=== PATIENT | female | born 1965 | race Caucasian/White ===

== ENCOUNTER 2022-05-14 10:00 | Outpatient (RCR) | payer BC, SELFPAY | END 2023-01-06 16:46 | disposition home or self-care (01) | PROVIDERS: PCP Internal Medicine; Visit Provider Internal Medicine | DX: M77.11 Lateral epicondylitis, right elbow (principal); M77.12 Lateral epicondylitis, left elbow; Z51.89 Encounter for other specified aftercare | CPT/HCPCS: 97033; 97035; 97140; 97166 ==

== ENCOUNTER 2022-06-03 16:31 | Outpatient (CLI) | payer BC, SELFPAY ==
--- NOTE | 2022-06-03 16:30 | MR_ITS ---
[address] [address] Phone:?[phone] Fax:?[phone] Referring Physician Information: Nabil Hung M.D. [address] [facility] [address] Phone:?[phone] Fax:?[phone] Patient:Manjinder Meza D.O.B:?1965 Sex:?Female Phone:?[phone] [facility] MRN:?[id number] Exam Date:?06/03/2022 ? EXAM: MRI of the RIGHT SHOULDER, without contrast CLINICAL INFORMATION: Female, 56 years old, with shoulder pain INDICATION: Shoulder pain, evaluate rotator cuff PRIOR SURGERY: None reported. PLAIN FILMS: None available. COMPARISONS: Shoulder MRI 03/19/2021 TECHNICAL INFORMATION: Using a 1.5T MR scanner and a localizing surface coil: Coronals: PD, T2, STIR Sagittals: PD, T2 Axials: PD, T2 SEDATION: None CONTRAST: None FINDINGS: Bones: Proximal humerus: No fracture or marrow edema/pathology. Cystic change in the greater tuberosity is unchanged from prior. No humeral Hill-Sachs or reverse Hill-Sachs lesion/impaction or contusion. Glenoid: No fracture or marrow edema/pathology. No osseous Bankart lesion. Rotator cuff and muscles/tendons: Supraspinatus: Mild supraspinatus tendinosis with interstitial tearing of the anterior distal tendon fibers at the insertional footprint measuring 12 mm in AP dimension with focally high-grade component involving greater than 80% tendon thickness. Superimposed articular sided fraying anteriorly. Infraspinatus: Mild infraspinatus tendinosis without rotator cuff tear. Teres minor: No tendinopathy, tear or atrophy. Subscapularis: Mild subscapularis tendinosis with longitudinally oriented splitting of the superior distal tendon.?Deltoid: No strain or atrophy. Coracoacromial arch: Acromion morphology: The acromion has type II morphology. No discrete subacromial osseous spur or os acromiale. Acromiohumeral space: The acromiohumeral space measures 5 mm. Coracohumeral space: The coracohumeral space is within normal limits. Acromioclavicular joint: Joint: Mild AC joint arthrosis with small subchondral cystic change. Ligaments: Coracoclavicular ligaments are intact. Bursae: Subacromial-subdeltoid: Trace subacromial bursitis Subcoracoid: No convincing subcoracoid bursal thickening/bursitis. Biceps tendon: The long head of the biceps tendon is present within the bicipital groove. Moderate intra-articular long head biceps tendinosis. Glenohumeral joint: Effusion/cyst: No significant glenohumeral joint effusion. Articular cartilage: Humeral head: No osteochondral abnormalities. Glenoid: No osteochondral abnormalities. Loose bodies: No discrete intra-articular body within the joint. Labrum:?Degeneration and fraying/tearing of the posterosuperior labrum. No paralabral ganglion cyst is identified. Inferior glenohumeral ligament/axillary pouch:?Intact. The axillary pouch is normal in thickness and signal. No evidence of adhesive capsulitis or capsular injury. IMPRESSION: 1. Mild supraspinatus tendinosis with interstitial tearing at the anterior distal insertional footprint similar in appearance to prior exam with focal high-grade component. Superimposed articular sided fraying anteriorly. No full- thickness retracted tendon tearing. 2. Mild subscapularis tendinosis with low-grade longitudinally oriented splitting of the superior distal tendon. 3. Mild infraspinatus tendinosis without tear. 4. Degeneration and fraying/tearing of the posterosuperior labrum. 5. Moderate intra-articular long head biceps tendinosis. 6. Mild narrowing of the subacromial space with trace subacromial bursitis. 7. No osteochondral defect. KME Electronically signed on 06/04/2022 12:41:00 PM by Isadora Henning M.D.
--- OUTSIDE RECORDS SUMMARY | 2022-06-03 16:32 | XMS_ITS | Clinical Summary ---
:1965 Author Organization [facility] Address [place] [address] Care Team Providers Name Role Phone Lisha Johnson BRICK POINTER Primary Care Provider Allergies Active Allergy Reactions Severity Noted Date Comments Bacitracin Itching 04/15/2022 Medications Medication Sig Dispensed Refills Start Date End Date Status atorvastatin (LIPITOR) Take 10 mg by 0 08/16/2021 Active 10 mg tablet mouth at bedtime. estradiol 0.1 mg/24 hr 0 03/17/2022 Active SEMIWEEKLY patch progesterone micronized 0 03/15/2022 Active (PROMETRIUM) 100 mg capsule Active Problems Problem Noted Date Colon polyp 12/09/2014 Overview: Colonoscopy 12/2014 polyps,repeat in 5 ye ars Colonoscopy 04/2020 normal, repeat in 5 years Encounters Date Type Specialty Care Team Description 04/15/2022 Office Visit Justin Mcclure, DPRena Con sult (Right foot pain) 04/15/2022 Travel from Last 3 Months Social History Tobacco Use Types Packs/Day Years Used Date Never Smoker Smokeless Tobacco: Never Used Tobacco Cessation: Counseling Given: Yes Alcohol Use Standard Drinks/Week Comments Not Asked 0 (1 standard drink = 0.6 oz pure alcoho l) Sex Assigned at Date Recorded Not on file Obstetrics History Last Filed Vital Signs Vital Sign Reading Time Taken Comments Blood Pressure 104/70 10/15/2014 2:17 PM CDT Pulse 75 04/15/2022 2:08 PM CDT Temperature 36.7 ??C (98 ??F) 10/15/2014 2:17 PM CDT Respiratory Rate - - Oxygen Saturation 98% 04/15/2022 2:08 PM CDT Inhaled Oxygen Concentration - - Weight 70.8 kg (156 lb) 04/15/2022 2:08 PM CDT Height 165.1 cm (5' 5) 10/15/2014 2:17 PM CDT Body Mass Index 25.96 10/15/2014 2:17 PM CDT Plan of Treatment Health Maintenance Due Date Last Done Comments Tdap 1977 Depression screening for age 12+ 1978 HIV for age 15-65 1981 BMI (ht and wt on same day) for 1984 age 18+ Hepatitis C screening for age 0107/17/1984 18-79 Tetanus booster 1986 Lipids for age 45-75 2011 Mammogram for age 45-75 2011 Zoster (shingles) series for age 0107/17/2016 50+ (1 of 2) COVID-19 vaccine series (2 - 08/21/2021 07/31/2021 Pfizer series) Influenza for age 50-64 03/04/2022 Pap test for age 21-65 09/03/2024 09/03/2021, 09/03/2021, 05/24/2017, Additional history exists Colonoscopy through age 75 04/07/2025 04/07/2020, , 04/07/2020, Additional history exists Results Not on filefrom Last 3 Months Insurance Payer Benefit Plan / Subscriber ID Effective Dates Phone Addre ss Type Group BLUE [employer]OSS [place] [id number] 2020-Present [address] [address] [place] [address] Care Teams Pants Closer Relationship Specialty Start Date End Date Lisha Johnson, BRICK POINTER PCP - General Nurse Practitioner 10/15/14 [id number] [place], [place] [id number]
== END 2022-06-03 16:32 | disposition home or self-care (01) ==
LOC: MRI 16:31
PROVIDERS: PCP Internal Medicine; Visit Provider Orthopaedic Surgery Sports Medicine
DX: M25.511 Pain in right shoulder (principal); M75.101 Unspecified rotator cuff tear or rupture of right shoulder, not specified as traumatic; S43.401A Unspecified sprain of right shoulder joint, initial encounter; M75.51 Bursitis of right shoulder
CPT/HCPCS: 73221

== ENCOUNTER 2022-07-01 13:13 | Outpatient (CLI) | payer BC, SELFPAY ==
--- NOTE | 2022-07-01 13:20 | CRLHL7_ITS ---
For Patients: As a result of the Century Cures Act, medical imaging exams and procedure reports are released immediately into your electronic medical record. You may view this report before your referring provider. If you have questions, please contact your health care provider. BILATERAL SCREENING MAMMOGRAM WITH COMPUTER-AIDED DETECTION AND TOMOSYNTHESIS TECHNIQUE: CC and MLO views were obtained. These mammographic images have been obtained using full-field digital technique. These mammographic images were interpreted with the benefit of computer-aided detection. Breast Tomosynthesis was used in this interpretation. COMPARISON FILM: 04/28/21, 01/30/20, 12/18/18. FINDINGS: There are scattered areas of fibroglandular density IMPRESSION: There is no radiographic evidence for malignancy. ASSESSMENT: BI-RADS Category 1: Negative RECOMMENDATION: Routine screening mammogram in 1 year. A lay language report of this examination will be provided to the patient. Pedro Sandoval M.D. Diagnostic Radiologist [email or web address] SIL/Dictated by: Pedro Sandoval MD @ 07/02/2022 11:42:00 AM (Electronically Signed)
== END 2022-07-01 13:14 | disposition home or self-care (01) ==
LOC: MAMMO 13:14
PROVIDERS: PCP Internal Medicine; Visit Provider Internal Medicine
DX: Z12.31 Encounter for screening mammogram for malignant neoplasm of breast (principal)
CPT/HCPCS: 77063; 77067

== ENCOUNTER 2022-07-19 06:19 | Day surgery (SDC) | payer BC, SELFPAY ==
[2022-07-19] VITALS (17 sets, daily range): BP systolic 94–132; BP diastolic 57–87; PULSE 52–74; RESP 16; TEMP 36.1–36.4; O2SAT 91–99; BMI 25.6
[2022-07-19] MEDS: fentaNYL 100 MCG/2 ML inj IVP (06:19)
[2022-07-19] MEDS: MIDAZOLAM HCL 1 MG/ML inj IVP (06:19)
[2022-07-19] MEDS: SODIUM CHLORIDE 0.9 % (FLUSH) 10 ML SYRINGE IVF (06:30)
[2022-07-19] MEDS: LACTATED RINGERS 1000 ML 1,000 ML 100 ML IV (06:30)
--- NOTE | 2022-07-19 07:16 | SUR.PREOP ---
TIME?OUT:?0720 PT/RN/MDA?VERIFICATION?OF?SURGICAL?SITE,?PROCEDURE,?AND?CONSENT OBTAINED?PRIOR?TO?INVASIVE?PROCEDURE.
[2022-07-19] MEDS: CEFAZOLIN 2 GM in 0.9 % SODIUM CHLORIDE Mini-bag 100 ML IVPB (08:48)
[2022-07-19] MEDS: EPINEPHrine 1 MG in SODIUM CHLORIDE IRRIG SOLUTION 3,000 ML 9003 MG IRRIGATION ×3 (08:59→09:40)
--- NOTE | 2022-07-19 09:50 | PM.ORPRC ---
Procedure Note Date of procedure: 07/19/22 Procedure: PREOPERATIVE DIAGNOSES: 1. Right shoulder rotator cuff [id number] partial-thickness supraspinatus 2. Right shoulder subacromial impingement syndrome. POSTOPERATIVE DIAGNOSES: 1. Right shoulder rotator cuff [id number] partial-thickness supraspinatus; upper border subscapularis high-grade partial-thickness 2. Right shoulder anterior and superior labral tearing 3. 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 Right shoulder subacromial impingement syndrome. NAME OF OPERATION: 1. Right shoulder arthroscopic rotator cuff repair (upper border subscap and anterior portion supraspinatus). 2. Right shoulder arthroscopic extensive glenohumeral debridement 3. Right shoulder arthroscopic bursectomy, subacromial decompression/partial acromioplasty. SURGEON: Nabil Hung MD RIB CHOPPER: Cleve Hayes PA-C. Of note, a skilled judicial administrative assistant was critical for this case to aide in patient positioning, suture manipulation, arm positioning, instrument positioning, and closure. ANESTHESIA: General plus preoperative supraclavicular block. EBL: Less than 25 mL IMPLANTS: Arthrex 4.75 mm BioComposite SwiveLock suture anchor (x1); 5.5 mm BioComposite SwiveLock suture anchor (x1) COMPLICATIONS: None evident INDICATIONS: The patient is a pleasant, 57-year-old female who has experienced right shoulder pain that has been increasing in recent time. Physical exam and imaging were consistent with a rotator cuff tear. Given their findings, as well as the weakness and pain, and inadequate response to nonoperative management, recommendation was made for surgery. FINDINGS: Exam under anesthesia revealed stable shoulder with excellent range of motion. The diagnostic arthroscopy revealed grade 4 chondromalacia humeral head an 8 mm region of the anterior central portion with loose chondral flaps around the perimeter. The Subscapularis tendon was torn from its upper border with mild-moderate retraction. The long head of the biceps tendon was intact with some partial thickness tearing of the superior and anterior labrum. The superior rotator cuff tendon was found to be torn in high-grade partial-thickness manner to the anterior portion of the supraspinatus consistent with what the MRI reveals. No loose bodies were identified within the pouch or subscapularis recess. PROCEDURE: Following a thorough discussion of risks, benefits, and alternatives, consent was obtained and the right shoulder was marked. The patient was brought to the operating room and placed supine on the operating table. Induction of anesthesia was completed after preoperative supraclavicular block was administered in preop holding. Appropriate time out was performed identifying proper patient, site, and procedure. 2 g IV Ancef was administered within 1 hour of incision preoperatively. The right upper extremity was prepped and draped in the appropriate sterile fashion using ChloraPrep prep. This was after the patient was positioned in the beach chair with their head in neutral alignment and all bony prominences well padded. The shoulder was insufflated with 20mL of normal saline via an 18g spinal needle from a posterior approach. An 11 blade skin incision allowed a blunt trochar to be inserted and diagnostic arthroscopy to be performed with the findings as noted above. An anterior portal was established with an outside in technique. This allowed the probe to be inserted and confirm the diagnostic arthroscopic findings. The shaver was then inserted and allowed debridement of the anterior and superior labrum as well as the loose chondral flaps on the humeral tissue and the humeral head bone tissue on the lesser tuberosity with the bur. The long head of biceps was probed and found be intact and stable without partial-thickness tearing or subluxation of bicipital groove. Following this, the upper border subscapularis was repaired after debriding the lesser tuberosity with the shaver and [place] cautery. Subscapularis was captured in horizontal mattress fashion with a fiber tape suture. The tails were brought to a single anchor in the lesser tuberosity with excellent reapproximation of the subscap tendon and good excursion/tension. Thereafter, the subacromial space was entered. Here, a complete bursectomy and partial acromioplasty/subacromial decompression was performed with a combination of radiofrequency ablator, the shaver, and a 5.5 mm bur. Further inspection of the supraspinatus and infraspinatus rotator cuff was performed. This identified the tear as noted above. The margins of the tear were debrided, and the greater tuberosity was debrided with a combination of the apollo cautery, shaver, and bur on reverse setting. [After gentle decortication, single FiberTape suture was passed in a horizontal mattress fashion with the scorpion needle. We entered back into the joint to confirm that the biceps tendon was free and not a part of suture passage. These tails were then brought to a single lateral anchor consistent with a speed fix repair. Prior to anchor farm truck driver removal, the eyelet sutures were tugged on for each anchor and found that the anchor had excellent stability within the bone. The shoulder was placed through range of motion and found to be stable. The rotator cuff was re-probed and found to be stable. Instruments were removed. Excess fluid was drained, closure performed with 4-0 Monocryl and Steri-Strips. Dressings were applied. Sling was applied. The patient was awoken from anesthesia and transferred to the PACU in stable condition. A skilled judicial administrative assistant was critical for this case to aid in patient positioning, limb positioning, skill to manipulate arthroscopic instruments and camera, suture management, patient safety, and closure. PLAN: 1. Elbow, forearm, wrist and digit range of motion as tolerated. 2. Encouraged ice. 3. Percocet for pain as needed. 4. Sling at all times except for ROM and showering. 5. Follow up with PA visit in 1-2 weeks for wound check. Initiate physical therapy following that visit for passive range of motion. Initiate active assisted range of motion at 3-3.5 weeks. May do pendulums now.
--- NOTE | 2022-07-19 10:06 | W.ANESCHARGE ---
Anesthesia Charges Start Date/Time Anesthesia Start Date: 07/19/22 Anesthesia Start Time: 08:37 Stop Date/Time Anesthesia Stop Date: 07/19/22 Anesthesia Stop Time: 10:06 Summary Emergency: No
[2022-07-19] MEDS: fentaNYL 100 MCG/2 ML inj 50 MCG IVP ×2 (10:10→10:21)
[2022-07-19] MEDS: OxyCODONE/APAP 5-325 TABLET 1 TAB PO (11:08)
--- NOTE | 2022-07-19 14:05 | P.NB_ITS ---
Nerve Block Nerve Block Time Seen by Provider: 07:23 Date Seen: 07/19/22 Type of block requested by surgeon for post-operative analgesia: supraclavicular Side: right Time out performed: Yes Verification of patient name: Yes Verification of date of : Yes Site marking: site marked Name of person performing procedure: Carlos Continuous monitoring Was continuous monitoring of O2 sat, B/P, gambling monitor, recorded every 15 minutes?: Yes Procedure Checklist: sterile prep, needles and gloves Ultrasound guided. Images saved: Yes Medications given in 5ml increments after negative aspiration: Ropivicaine %: 0.5 mL: 20 Needle gauge: 22 Decadron (mg): 10 Precedex (mcg): 25 Patient tolerated procedure well: Yes Block Charges Block Charge (with Pro Fee): Brachial Plexus Use of Ultrasound Machine for Block: Yes- US Guidance/pain block
--- NOTE | 2022-07-19 14:05 | W.ANESCHARGE ---
Anesthesia Charges Start Date/Time Anesthesia Start Date: 07/19/22 Anesthesia Start Time: 08:37 Stop Date/Time Anesthesia Stop Date: 07/19/22 Anesthesia Stop Time: 10:06 Summary Emergency: No
== END 2022-07-19 11:50 | disposition home or self-care (01) ==
PROVIDERS: PCP Internal Medicine; Visit Provider Orthopaedic Surgery Sports Medicine
PROC: (CPT 29805; principal; 2022-07-19 08:30)
DX: M75.101 Unspecified rotator cuff tear or rupture of right shoulder, not specified as traumatic (principal); M75.41 Impingement syndrome of right shoulder; S43.431A Superior glenoid labrum lesion of right shoulder, initial encounter; M94.211 Chondromalacia, right shoulder
CPT/HCPCS: 29827; 29826; 29823; 01630; 64415; 76942; A9270; C1713; J0171; J0330; J0690; J1100; J2250; J2370; J2405; J2704; J2795; J3010; J7120

== ENCOUNTER 2022-12-02 15:15 | Outpatient (RCR) | payer BC, SELFPAY | END 2023-04-01 23:59 | disposition home or self-care (01) | PROVIDERS: PCP Internal Medicine; Visit Provider Physician Assistant Surgical | DX: M25.511 Pain in right shoulder (principal); Z98.890 Other specified postprocedural states; Z51.89 Encounter for other specified aftercare | CPT/HCPCS: 97110; 97162 ==

== ENCOUNTER 2023-05-05 07:39 | Outpatient (CLI) | payer BC, SELFPAY | END 2023-05-05 07:40 | disposition home or self-care (01) | LOC: NFLDREF 05-09 05:10 | PROVIDERS: PCP Internal Medicine; Referring Provider Internal Medicine; Visit Provider Internal Medicine | DX: E78.5 Hyperlipidemia, unspecified (principal) | CPT/HCPCS: 80061 ==

== ENCOUNTER 2023-06-30 09:00 | Outpatient (RCR) | payer BC, SELFPAY ==
--- NOTE | 2023-06-16 17:14 | PT.OPEX ---
PT [place] Outpatient Eval PT [facility] Outpatient Eval Start: 06/16/23 16:54 Freq: Status: Active Protocol: Document 06/16/23 16:54 LOUISE (Rec: 06/16/23 17:08 LOUISE [id number]) E-signed By Maddie Gold DPT Physical Therapy Outpatient Evaluation Insurance Information Insurance Name Blue Cross/Blue Shield Medical Diagnosis R shoulder pain, stiffness hx RCR 07/19/22 Treating Diagnosis R shoulder pain, R shoulder stiffness, R shoulder weakness , limited tolerance for push/ pull/lifting Subjective Subjective Patient reports flare up of R anterior shoulder pain about 2 -3 months ago. Pain has continued since then but will fluctuate up/down some depending on use. She reports tenderness with pressure to her R anterior shoulder. She has been trying to do stretches and icing but pain/ sx continue. Pain range 0-4/ 10. She is using ibuprofen as needed. Icing as needed. She had RCR Jul 2022 so was concerned she did something to her RC. MD felt RC was ok but just some over use soreness and stiffness so referred to PT. 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 Pain range 0-4/10. Patient with hx of R RCR Jul 2022. She is tight, tender, reactive with palpation R anterior shoulder region. Reports this is the area of pain with activity. R shoulder AROM is WFL. Some tightness, stiffness with overhead reaching but functional. R shoulder/RC strength is WFL, mild pain with resisted shoulder flex, abd. R shoulder Speeds Test positive. Reviewed general stretching for R shoulder, use of pulleys, codmans for relaxation and pain relief. Patient shown bicep tendon stretching. She started back on some of her shoulder exercises - reviewed exercises and recommendations for current HEP and then ongoing HEP to prevent future flare ups. Patient expressed understanding. Treatment with MT, graston technique, cupping, and taping this session. Tolerated well. Patient to ice when she gets home. Patient would benefit from skilled PT for pain/sx management, return to pain free R shoulder ROM WFL, improved R shoulder strength, posture/body mechanics training, and establishment of HEP. Plan of Care Rehabilitation Potential Good Physical Therapy Goals 1. Decrease R shoulder pain to less than/equal to 3/10 with daily/work activities and with the progression of PT activities over the next 4-6 weeks. 2. Return to R shoulder AROM WFL and pain free over the next 6-8 weeks for return to daily/work activities without flare up of pain. 3. Patient will be educated on posture and body mechanics over the next 4-6 weeks for decreased stress to UBN/shoulder region, improved shoulder mechanics, and decreased shoulder pain. 4. Improve R shoulder strength over the next 6-8 weeks for return to PLF with daily/work activities without limitation or flare up of pain. 5. Patient will be I with HEP within 8 weeks for progression toward above goals, ongoing self management of pain/sx, ongoing self improvements in posture/shoulder strength/ mechanics, and for return to PLF with daily/work activities without flare up of pain. Coordination/Communication With Referral Source Treatment Plan/Direct Interventions Manual Therapy,Therapeutic Exercises,Ultrasound Frequency/Duration 1x/week Patient Will Be Discharged From Therapy Completion of LTG(s),Skills Plateau,Independent w/HEP, Independently Progressing Evaluation Billing Untimed Code Treatment Minutes 24 Complexity Moderate Certification Information Physician Comment/Change : Physician NPI Number #
== END 2023-09-30 11:22 | disposition home or self-care (01) ==
PROVIDERS: PCP Internal Medicine; Visit Provider Orthopaedic Surgery Sports Medicine
DX: M25.511 Pain in right shoulder (principal); M25.611 Stiffness of right shoulder, not elsewhere classified; Z98.890 Other specified postprocedural states; R29.898 Other symptoms and signs involving the musculoskeletal system; Z51.89 Encounter for other specified aftercare
CPT/HCPCS: 97110; 97140; 97162

== ENCOUNTER 2023-11-17 09:09 | Outpatient (CLI) | payer BC, SELFPAY ==
--- OUTSIDE RECORDS SUMMARY | 2023-11-17 09:12 | XMS_ITS | Clinical Summary ---
Author Name Unknown Organization [facility] Address [place], [place] [address] Care Team Providers Care Superintendent Nonselling Name Role Phone Lisha Johnson ETYMOLOGY TEACHER Primary Care Provider Unava ilable Allergies Active Allergy Reactions Criticality Noted Date Comments Bacitracin Itching 04/15/2022 Medications Medication Sig Dispensed Refills Start Date End Date Status atorvastatin (LIPITOR) 10 mg tablet Take 10 mg by mouth at bedtime. 08/16/2021 Active estradiol 0.1 mg/24 hr SEMIWEEKLY patch 03/17/2022 Active progesterone micronized (PROMETRIUM) 100 mg capsule 03/15/2022 Active Active Problems Problem Noted Date Diagnosed Date Colon polyp 12/09/2014 Overview: Colonoscopy 12/2014 polyps,repeat in 5 years Colonoscopy 04/2020 normal, repeat in 5 years Social History Tobacco Use Types Packs/Day Years Used Date Smoking Tobacco: Never Smokeless Tobacco: Never Tobacco Cessation:Counseling Given: Yes Alcohol Use Standard Drinks/Week Comments Not Asked 0 (1 standard drink = 0.6 oz pur e alcohol) Sex and Gender Information Value Date Recorded Sex Assigned at Not on file Gender Identity Not on file Sexual Orientation Not on file Obstetrics History Last Filed Vital Signs Vital Sign Reading Time Taken Comments Blood Pressure 104/70 10/15/2014 2:17 PM CDT Pulse 56 07/07/2023 11:59 AM YEAST CULTURE OPERATOR Temperature 36.8 ??C (98.3 ??F) 07/07/2023 11:[address] Respiratory Rate - - Oxygen Saturation 96% 09/09/2022 11:20 AM YEAST CULTURE OPERATOR Inhaled Oxygen Concentration - - Weight 69.1 kg (152 lb 6.4 oz) 07/07/2023 11:59 AM YEAST CULTURE OPERATOR Height 165.1 cm (5' 5) 10/15/2014 2:17 PM CDT Body Mass Index 25.36 10/15/2014 2:17 PM CDT Plan of Treatment Health Maintenance Due Date Last Done Comments Tdap 1977 Depression screening for age 12+ 1978 HIV for age 15-65 1981 BMI (ht and wt on same day) for age 18+ 1984 Hepatitis C screening for age 18-79 1984 Tetanus booster 1986 Lipids for age 45-75 2011 Mammogram for age 45-75 2011 Zoster (shingles) series for age 50+ (1 of 2) 2016 COVID-19 vaccine series (2022- season) 2023 07/31/2021 Influenza for age 50-64 03/04/2024 Pap test for age 21-65 09/03/2024 , 09/03/2021, 05/24/2017, Additional history exists Colonoscopy through age 75 04/07/202504/07, 04/07/2020, 04/07/2020, Additional history exists Pneumococcal series for age 6-64 Aged Out No longer eligible based on patient's age to complete this topic Procedures Procedure Name Priority Date/Time Associated Diagnosis Comments HPV THIN PREP Routine 09/03/2021 1:20 PM YEAST CULTURE OPERATOR COLONOSCOPY SCREENING Routine 04/07/2020 12:00 PM CDT History of colon polyps from Last 3 Months or Most Recently Relevant to Health Maintenance Results * HPV HIGH RISK (09/03/2021 1:20 PM YEAST CULTURE OPERATOR) TYPE 16 Negative Negative 09/08/2021 11:52 AM YEAST CULTURE OPERATOR [facility] TYPE 18 Negative Negative 09/08/2021 11:52 AM YEAST CULTURE OPERATOR [facility] OTHER HIGH RISK TYPES Negative Negative 09/08/2021 11:52 AM YEAST CULTURE OPERATOR [facility] Other (Cervical/Vagina l) 09/03/2021 1:20 PM YEAST CULTURE OPERATOR 09/07/2021 9:42 AM YEAST CULTURE OPERATOR Narrative [facility] - 09/08/2021 11:52 AM YEAST CULTURE OPERATOR HPV types 16, 18, 31, 33, 35, 39, 45, 51, 52, 56, 58, 59, 66 and 68 DNA were undetectable or below the pre-set threshold. Methodology: Johanna Rola 4800 HPV Test Yari Alex MD MICROBIOLOGY [facility] [address] [place] [address], * COLONOSCOPY SCREENING (04/07/2020 12:00 PM CDT) Conrad Umaña MD GI PROCEDURE ORD from Last 3 Months or Most Recently Relevant to Health Maintenance Care Teams Superintendent Nonselling Relationship Specialty Start Date End Date Lisha Johnson, JANICE PCP - General Nurse Practitioner 10/15/14
--- NOTE | 2023-11-17 09:45 | MM_ITS ---
Patient: LORENZA LIVINGSTON Facility:?[facility] Patient ID:?[id number] Site Patient ID:?[id number] Site :?[id number] Study:?XRay-Breast Bilateral 3D W/CAD-11/17/2023 9:51:47 AM Ordering Physician:Yari Tobias Final Report: BILATERAL SCREENING MAMMOGRAM WITH COMPUTER-AIDED DETECTION AND TOMOSYNTHESIS TECHNIQUE: CC and MLO views were obtained. These mammographic images have been obtained using full-field digital technique. These mammographic images were interpreted with the benefit of computer-aided detection. Breast Tomosynthesis was used in this interpretation. COMPARISON FILM: 07/01/22, 04/28/21, 01/30/20. FINDINGS: The breasts are heterogeneously dense, which may obscure small masses. IMPRESSION: There is no radiographic evidence for malignancy. ASSESSMENT: BI-RADS Category 2: Benign RECOMMENDATION: Routine screening mammogram in 1 year. A lay language report of this examination will be provided to the patient. Pedro Sandoval M.D. Diagnostic Radiologist [email or web address] DSM/sp R& Transcribed: 2:05 p.m. SP/Dictated by: Pedro Sandoval MD @ 11/17/2023 10:17:00 AM Signed by:Brandi Sandoval MD @11/17/2023 3:10:51 PM (Electronic Signature)
== END 2023-11-17 09:10 | disposition home or self-care (01) ==
LOC: MAMMO 09:10
PROVIDERS: PCP Internal Medicine; Visit Provider Internal Medicine
DX: Z12.31 Encounter for screening mammogram for malignant neoplasm of breast (principal); R92.2 Inconclusive mammogram
CPT/HCPCS: 77063; 77067

== ENCOUNTER 2024-04-16 13:40 | Outpatient (CLI) | payer BC, SELFPAY ==
--- OUTSIDE RECORDS SUMMARY | 2024-04-16 16:13 | XMS_ITS | Clinical Summary ---
Author Organization [employer] [facility] Address [place], [place] [address] Care Team Providers Care Alcoholic Counselor Name Role Phone Lisha Johnson NP Primary Care Provider Unava ilable Allergies Active [...] Noted Date Diagnosed Date Colon polyp 12/09/2014 Overview (04/07/2020): Colonoscopy 12/2014 polyps,repeat in 5 years Colonoscopy [...] PM CDT Pulse 56 07/07/2023 11:59 AM MANAGER FASHION Temperature 36.8 ??C (98.3 ??F) 07/07/2023 11:[address] Respiratory Rate - - Oxygen Saturation 96% 09/09/2022 11:20 AM MANAGER FASHION Inhaled Oxygen Concentration - - Weight 69.1 kg (152 lb 6.4 oz) 07/07/2023 11:59 AM MANAGER FASHION Height 165.1 cm (5' 5) 10/15/2014 2:17 [...] (1 of 2) 2016 COVID-19 vaccine series (2023- season) 2024 07/31/2021 Influenza for age 50-64 03/04/2024 Pap test for age 21-65 09/03/2024 , 09/03/2021, 05/24/2017, Additional history exists Colonoscopy through age 75 04/07/202504/07, 04/07/2020, 04/07/2020, Additional history exists Pneumococcal series for age 6-64 Aged Out No longer eligible based on patient's age to complete this topic Procedures Procedure Name Priority Date/Time Associated Diagnosis Comments HPV HIGH RISK Routine 09/03/2021 1:20 PM MANAGER FASHION COLONOSCOPY SCREENING Routine 04/07/2020 12:00 PM CDT History of colon polyps from Last 3 Months or Most Recently Relevant to Health Maintenance Results * HPV HIGH RISK (09/03/2021 1:20 PM MANAGER FASHION) TYPE 16 Negative Negative 09/08/2021 11:52 AM MANAGER FASHION [facility] [employer] [facility] TYPE 18 Negative Negative 09/08/2021 11:52 AM MANAGER FASHION [facility] [employer] OTHER HIGH RISK TYPES Negative Negative 09/08/2021 11:52 AM MANAGER FASHION [facility] Other (Cervical/Vagina l) 09/03/2021 1:20 PM MANAGER FASHION 09/07/2021 9:42 AM MANAGER FASHION Narrative [facility] LABOR[facility]-CENTRAL LABORATORY - 09/08/2021 11:52 AM MANAGER FASHION HPV types 16, 18, 31, 33, 35, 39, 45, 51, 52, 56, 58, 59, 66 and 68 DNA were undetectable or below the pre-set threshold. Methodology: Johanna Rola 4800 HPV Test Yari Alex MD MICROBIOLOGY [facility]-C[facility]AL LABORATORY [address] [place] [address], * COLONOSCOPY SCREENING (04/07/2020 12:00 PM CDT) Conrad Umaña MD GI PROCEDURE ORD from Last 3 Months or Most Recently Relevant to Health Maintenance Care Teams Alcoholic Counselor Relationship Specialty Start Date End Date Lisha Johnson, TRANSPORTATION PLANNING ENGINEER PCP - General Nurse Practitioner 10/15/14
== END 2024-04-16 13:41 | disposition home or self-care (01) ==
LOC: NFLDREF 16:11
PROVIDERS: PCP Internal Medicine; Referring Provider Internal Medicine; Visit Provider Family Medicine
DX: J01.90 Acute sinusitis, unspecified (principal)
CPT/HCPCS: 80048; 86140

== ENCOUNTER 2024-05-16 07:57 | Outpatient (CLI) | payer BC, SELFPAY ==
--- OUTSIDE RECORDS SUMMARY | 2024-05-19 18:07 | XMS_ITS | Clinical Summary ---
Author Organization [facility] [facility] Address [place], [place] [address] Care Team Providers Care Axminster Rug Setter Name Role Phone Lisha Johnson NP Primary [...] PM CDT Pulse 56 07/07/2023 11:59 AM FIRE MANAGER Temperature 36.8 ??C (98.3 ??F) 07/07/2023 11:[address] Respiratory Rate - - Oxygen Saturation 96% 09/09/2022 11:20 AM FIRE MANAGER Inhaled Oxygen Concentration - - Weight 69.1 kg (152 lb 6.4 oz) 07/07/2023 11:59 AM FIRE MANAGER Height 165.1 cm (5' 5) 10/15/2014 2:17 [...] HPV HIGH RISK Routine 09/03/2021 1:20 PM FIRE MANAGER COLONOSCOPY SCREENING Routine 04/07/2020 12:00 PM CDT History of colon polyps from Last 3 Months or Most Recently Relevant to Health Maintenance Results * HPV HIGH RISK (09/03/2021 1:20 PM FIRE MANAGER) TYPE 16 Negative Negative 09/08/2021 11:52 AM FIRE MANAGER [facility] [employer] [facility] TYPE 18 Negative Negative 09/08/2021 11:52 AM FIRE MANAGER [facility] [employer] TRAL LABORATORY OTHER HIGH RISK TYPES Negative Negative 09/08/2021 11:52 AM FIRE MANAGER [facility] TRAL LABORATORY Other (Cervical/Vagina l) 09/03/2021 1:20 PM FIRE MANAGER 09/07/2021 9:42 AM FIRE MANAGER Narrative [facility] LABORATORY-CENTRAL LABORATORY - 09/08/2021 11:52 AM FIRE MANAGER HPV types 16, 18, 31, 33, 35, 39, 45, 51, 52, 56, 58, 59, 66 and 68 DNA were undetectable or below the pre-set threshold. Methodology: Johanna Rola 4800 HPV Test Yari Alex MD MICROBIOLOGY [facility]-CENTRAL LABORATORY [address] [place] [address], * COLONOSCOPY SCREENING (04/07/2020 12:00 PM CDT) Conrad Umaña MD GI PROCEDURE ORD from Last 3 Months or Most Recently Relevant to Health Maintenance Care Teams Axminster Rug Setter Relationship Specialty Start Date End Date Lisha Johnson, AGRONOMIST PCP - General Nurse Practitioner 10/15/14
== END 2024-05-16 07:58 | disposition home or self-care (01) ==
LOC: NFLDREF 05-19 18:05
PROVIDERS: PCP Internal Medicine; Referring Provider Internal Medicine; Visit Provider Internal Medicine
DX: E78.5 Hyperlipidemia, unspecified (principal); Z13.1 Encounter for screening for diabetes mellitus
CPT/HCPCS: 80061; 82947

== ENCOUNTER 2024-05-29 12:12 | Outpatient (CLI) | payer BC, SELFPAY ==
--- OUTSIDE RECORDS SUMMARY | 2024-05-29 12:16 | XMS_ITS | Clinical Summary ---
Author Organization [employer] [facility] Address [place], [place] [address] Care Team Providers Care Principal Embedded Software Engineer Name Role Phone Lisha Johnson NP Primary [...] PM CDT Pulse 56 07/07/2023 11:59 AM TINSMITH HELPER Temperature 36.8 C (98.3 F) 07/07/2023 11:59 AM TINSMITH HELPER Respiratory Rate - - Oxygen Saturation 96% 09/09/2022 11:20 AM TINSMITH HELPER Inhaled Oxygen Concentration - - Weight 69.1 kg (152 lb 6.4 oz) 07/07/2023 11:59 AM TINSMITH HELPER Height 165.1 cm (5' 5) 10/15/2014 2:17 [...] HPV HIGH RISK Routine 09/03/2021 1:20 PM TINSMITH HELPER COLONOSCOPY SCREENING Routine 04/07/2020 12:00 PM CDT History of colon polyps from Last 3 Months or Most Recently Relevant to Health Maintenance Results * HPV HIGH RISK (09/03/2021 1:20 PM TINSMITH HELPER) TYPE 16 Negative Negative 09/08/2021 11:52 AM TINSMITH HELPER [facility] [employer] TYPE 18 Negative Negative 09/08/2021 11:52 AM TINSMITH HELPER [facility] [employer]-[facility] TRAL LABORATORY OTHER HIGH RISK TYPES Negative Negative 09/08/2021 11:52 AM TINSMITH HELPER [facility] Other (Cervical/Vagina l) 09/03/2021 1:20 PM TINSMITH HELPER 09/07/2021 9:42 AM TINSMITH HELPER Narrative [facility] LABORATORY-CENTRAL LABORATORY - 09/08/2021 11:52 AM TINSMITH HELPER HPV types 16, 18, 31, 33, 35, 39, 45, 51, 52, 56, 58, 59, 66 and 68 DNA were undetectable or below the pre-set threshold. Methodology: Johanna Rola 4800 HPV Test Yari Alex MD MICROBIOLOGY [facility] LAB[facility]ORY-CENTRAL LABORATORY [address] [place] [address], * COLONOSCOPY SCREENING (04/07/2020 12:00 PM CDT) Conrad Umaña MD GI PROCEDURE ORD from Last 3 Months or Most Recently Relevant to Health Maintenance Care Teams Principal Embedded Software Engineer Relationship Specialty Start Date End Date Lisha Johnson, JANICE PCP - General Nurse Practitioner 10/15/14
== END 2024-05-29 12:13 | disposition home or self-care (01) ==
PROVIDERS: PCP Internal Medicine; Visit Provider Internal Medicine
DX: E78.5 Hyperlipidemia, unspecified (principal); R10.9 Unspecified abdominal pain
CPT/HCPCS: 80053; 83690

== ENCOUNTER 2024-05-29 13:03 | Outpatient (CLI) | payer BC, SELFPAY ==
--- OUTSIDE RECORDS SUMMARY | 2024-05-29 13:05 | XMS_ITS | Clinical Summary ---
Author Organization [employer] [facility] Address [place], [place] [address] Care Team Providers Care Tax Adjuster Name Role Phone Lisha Johnson NP Primary [...] PM CDT Pulse 56 07/07/2023 11:59 AM ACADEMIC RECORDS SPECIALIST Temperature 36.8 C (98.3 F) 07/07/2023 11:59 AM ACADEMIC RECORDS SPECIALIST Respiratory Rate - - Oxygen Saturation 96% 09/09/2022 11:20 AM ACADEMIC RECORDS SPECIALIST Inhaled Oxygen Concentration - - Weight 69.1 kg (152 lb 6.4 oz) 07/07/2023 11:59 AM ACADEMIC RECORDS SPECIALIST Height 165.1 cm (5' 5) 10/15/2014 2:17 [...] HPV HIGH RISK Routine 09/03/2021 1:20 PM ACADEMIC RECORDS SPECIALIST COLONOSCOPY SCREENING Routine 04/07/2020 12:00 PM CDT History of colon polyps from Last 3 Months or Most Recently Relevant to Health Maintenance Results * HPV HIGH RISK (09/03/2021 1:20 PM ACADEMIC RECORDS SPECIALIST) TYPE 16 Negative Negative 09/08/2021 11:52 AM ACADEMIC RECORDS SPECIALIST [facility] [employer] TYPE 18 Negative Negative 09/08/2021 11:52 AM ACADEMIC RECORDS SPECIALIST [facility] [employer] TRAL LABORATORY OTHER HIGH RISK TYPES Negative Negative 09/08/2021 11:52 AM ACADEMIC RECORDS SPECIALIST [facility] Other (Cervical/Vagina l) 09/03/2021 1:20 PM ACADEMIC RECORDS SPECIALIST 09/07/2021 9:42 AM ACADEMIC RECORDS SPECIALIST Narrative [facility] LABORATORY-CENTRAL LABORATORY - 09/08/2021 11:52 AM ACADEMIC RECORDS SPECIALIST HPV types 16, 18, 31, 33, 35, 39, 45, 51, 52, 56, 58, 59, 66 and 68 DNA were undetectable or below the pre-set threshold. Methodology: Johanna Rola 4800 HPV Test Yari Alex MD MICROBIOLOGY [facility] LAB[facility]ORY-CENTRAL LABORATORY [address] [place] [address], * COLONOSCOPY SCREENING (04/07/2020 12:00 PM CDT) Conrad Umaña MD GI PROCEDURE ORD from Last 3 Months or Most Recently Relevant to Health Maintenance Care Teams Tax Adjuster Relationship Specialty Start Date End Date Lisha Johnson, JANICE PCP - General Nurse Practitioner 10/15/14
--- NOTE | 2024-05-29 15:00 | CRLHL7_ITS ---
For Patients: As a result of the 21st Century Cures Act, medical imaging exams and procedure reports are released immediately into your electronic medical record. You may view this report before your referring provider. If you have questions, please contact your health care provider. INDICATION: 24 hours of left lower quadrant pain. COMPARISON: No recent prior comparison study. Comparison is made to an exam dated 10/05/2014. TECHNIQUE: CT of the abdomen and pelvis with 74 cc of Isovue 370 intravenous contrast. Please note that all CT scans at this facility use dose modulation, iterative reconstruction, and/or weight-based dosing when appropriate to reduce radiation dose to as low as reasonably achievable. FINDINGS: ABDOMEN Liver: Normal contour and attenuation. Round circumscribed homogeneous fat attenuation finding measuring 5 mm in segment 5 (2; 46) new in the interval since 10/05/2014 (9 years and 7 months prior) consistent with a lipoma. Differential diagnostic considerations include an angiomyolipoma. The size and homogeneous attenuation of the finding indicative of fat suggest a benign lesion for which no routine imaging surveillance is indicated. No intrahepatic biliary ductal dilatation. Patent portal veins. Patent hepatic veins. Gallbladder: Normal size. No pericholecystic inflammatory changes. Normal common duct caliber. Pancreas: Normal contour and attenuation. No peripancreatic inflammatory changes. No significant focal lesion. Normal main duct caliber. Spleen: Not enlarged. To small to characterize circumscribed homogeneous low-attenuation finding in the anterior aspect of the upper pole of the spleen (series 2; image 20), also present on the prior exam of 10/05/2014, slightly larger. This is findings statistically likely to represent a cyst which is considered benign given its long-term presence. Patent splenic artery and vein. Adrenal Glands: Symmetrical adrenal glands. No significant focal lesion. Kidneys: Normal bilateral renal attenuation. No significant focal lesion. No nephrolith. No dilatation of the intrarenal collecting systems. No ureteral stone. Nondilated ureters. Patent renal arteries and veins. Gastrointestinal tract: Acute uncomplicated diverticulitis of the sigmoid colon (series 2; image 91 and series 4; image 32). Normal appendix. Vascular: Abdominal aorta and its major proximal branches including the celiac, superior mesenteric, inferior mesenteric, renal, and bilateral common iliac arteries are patent. Patent superior mesenteric vein. Peritoneal Cavity/Retroperitoneum: No ascites. No adenopathy. PELVIS No bladder lesion is identified. No significant incidental findings related to the uterus or uterine adnexa. No significant ascites. No adenopathy. SKELETON AND BODY WALL No acute or significant incidental findings. LOWER THORAX Partially included lower thoracic wall, lungs, pleural spaces and mediastinum are otherwise without significant incidental findings. IMPRESSION: Acute uncomplicated sigmoid diverticulitis. Incidental findings described in the body of the report. Please note that all CT scans at this facility use dose modulation, iterative reconstruction, and/or weight-based dosing when appropriate to reduce radiation dose to as low as reasonably achievable. Dictated by Jeison Deluna MD @ 05/29/2024 1:37:02 PM (Electronically Signed)
== END 2024-05-29 13:04 | disposition home or self-care (01) ==
LOC: CT 13:04
PROVIDERS: PCP Internal Medicine; Visit Provider Internal Medicine
DX: R10.32 Left lower quadrant pain (principal); K57.92 Diverticulitis of intestine, part unspecified, without perforation or abscess without bleeding
CPT/HCPCS: 74177; Q9967

== ENCOUNTER 2025-02-18 10:01 | Outpatient (CLI) | payer BC, SELFPAY ==
--- NOTE | 2025-02-18 13:40 | CRLHL7_ITS ---
For Patients: As a result of the Cures Act, medical imaging exams and procedure reports are released immediately into your electronic medical record. You may view this report before your referring provider. If you have questions, please contact your health care provider. BILATERAL DIGITAL SCREENING MAMMOGRAM WITH COMPUTER-AIDED DETECTION AND TOMOSYNTHESIS CLINICAL HISTORY: : Routine screening exam. COMPARISON: Mammograms 11/17/2023 priors dating back to 04/28/2021. TECHNIQUE: Digital mammogram in CC and MLO projections including computer-aided detection (CAD) and tomosynthesis. BREAST COMPOSITION: There are scattered areas of fibroglandular density. FINDINGS: RIGHT Breast: There is a focal asymmetry in the upper-outer breasts 6 cm from the nipple. LEFT Breast: No suspicious findings. IMPRESSION: RIGHT breast focal asymmetry. RECOMMENDATIONS: Additional mammographic views of the RIGHT breast including a 90 degree lateral view and spot compression views in CC and MLO projections with tomosynthesis. RIGHT breast ultrasound may also be required. A member of the health care team will contact the patient to schedule the required additional imaging appointment(s). BI-RADS Category 0: Incomplete: Need Additional Imaging Evaluation Dictated by Jewell Thompson MD @ 02/19/2025 9:01:59 AM (Electronically Signed)
== END 2025-02-18 10:02 | disposition home or self-care (01) ==
LOC: MAMMO 10:01
PROVIDERS: PCP Internal Medicine; Visit Provider Internal Medicine
DX: Z12.31 Encounter for screening mammogram for malignant neoplasm of breast (principal); N63.10 Unspecified lump in the right breast, unspecified quadrant
CPT/HCPCS: 77063; 77067

== ENCOUNTER 2025-02-26 09:05 | Outpatient (CLI) | payer BC, SELFPAY ==
--- NOTE | 2025-02-26 08:45 | CRLHL7_ITS ---
For Patients: As a result of the Century Cures Act, medical imaging exams and procedure reports are released immediately into your electronic medical record. You may view this report before your referring provider. If you have questions, please contact your health care provider. DIGITAL DIAGNOSTIC RIGHT MAMMOGRAM USING TOMOSYNTHESIS RIGHT BREAST ULTRASOUND CLINICAL HISTORY: RIGHT breast mass/asymmetry. COMPARISON: 02/18/2025, 11/17/2023, 07/01/2022. TECHNIQUE: Digital RIGHT mammogram in two projections. Tomosynthesis was used in this interpretation. Real-time ultrasound imaging of RIGHT breast with imaging documentation. BREAST COMPOSITION: The breast is heterogeneously dense, which may obscure small masses. FINDINGS: 3D spot compression CC/MLO RIGHT breast mammogram images submitted. Decreased conspicuity of the previously noted asymmetric density. No architectural distortion. Benign calcifications. Targeted RIGHT breast ultrasound performed. At 10 o`clock 7 cm from the nipple there is a simple circumscribed anechoic cyst with increased through-transmission measuring 4 x 4 x 7 millimeters. Normal adjacent fibroglandular tissue noted. No suspicious findings. IMPRESSION: No evidence of malignancy. RECOMMENDATIONS: Routine screening mammography. A lay language report of this examination will be provided to the patient. BI-RADS Category 2: Benign Dictated by Pedro Sandoval MD @ 02/26/2025 10:11:22 AM jj/Dictated by: Pedro Sandoval MD @ 02/26/2025 10:11:00 AM (Electronically Signed)
--- NOTE | 2025-02-26 09:15 | CRLHL7_ITS ---
For Patients: As a result of the Cures Act, medical imaging exams and procedure reports are released immediately into your electronic medical record. You may view this report before your referring provider. If you have questions, please contact your health care provider. SEE DIGITAL DIAGNOSTIC RIGHT MAMMMOGRAM PERFORMED SAME DAY CRL:[email or web address] [email or web address]/Dictated by: Pedro Sandoval MD @ 02/26/2025 10:11:00 AM (Electronically Signed)
== END 2025-02-26 09:06 | disposition home or self-care (01) ==
LOC: MAMMO 09:05
PROVIDERS: PCP Internal Medicine; Visit Provider Internal Medicine
DX: N63.10 Unspecified lump in the right breast, unspecified quadrant (principal); R92.8 Other abnormal and inconclusive findings on diagnostic imaging of breast
CPT/HCPCS: 76642; 77065; G0279

== ENCOUNTER 2025-04-12 10:11 | Outpatient (CLI) | payer BC, SELFPAY ==
--- NOTE | 2025-04-12 11:40 | P.ANES_ITS ---
Anesthesia Charges Start Date/Time Anesthesia Start Date: 04/12/25 Anesthesia Start Time: 11:11 Stop Date/Time Anesthesia Stop Date: 04/12/25 Anesthesia Stop Time: 11:39 Coding CPT Codes CPT Codes: AL LWR INTST SCR COLSC - 16674 ([id number]) P1 - NORMAL HEALTHY PATIENT, QK - COMMERCIAL TECHNICIAN 2-4 CNCRNT ANES PROC, QX - ENVIRONMENTAL GEOLOGIST SVC W/ MED DIRECTION
--- NOTE | 2025-04-12 11:40 | W.ANESCHARGE ---
Anesthesia Charges Start Date/Time Anesthesia Start Date: 04/12/25 Anesthesia Start Time: 11:11 Stop Date/Time Anesthesia Stop Date: 04/12/25 Anesthesia Stop Time: 11:39 Coding CPT Codes CPT Codes: AL LWR INTST SCR COLSC - 84179 ([id number]) P1 - NORMAL HEALTHY PATIENT, QK - CPO 2-4 CNCRNT ANES PROC, QX - MEASUREMENT ADVISOR SVC W/ MED DIRECTION
--- NOTE | 2025-04-12 11:58 | P.ANES_ITS ---
Anesthesia Charges Start Date/Time Anesthesia Start Date: 04/12/25 Anesthesia Start Time: 11:11 Stop Date/Time Anesthesia Stop Date: 04/12/25 Anesthesia Stop Time: 11:39 Coding CPT Codes CPT Codes: AL LWR INTST SCR COLSC - 74763 ([id number]) P1 - NORMAL HEALTHY PATIENT, QK - FIREWORKS ASSEMBLY SUPERVISOR 2-4 CNCRNT ANES PROC, QX - MANAGER FOOD SVC W/ MED DIRECTION
--- NOTE | 2025-04-12 11:58 | W.ANESCHARGE ---
Anesthesia Charges Start Date/Time Anesthesia Start Date: 04/12/25 Anesthesia Start Time: 11:11 Stop Date/Time Anesthesia Stop Date: 04/12/25 Anesthesia Stop Time: 11:39 Coding CPT Codes CPT Codes: AL LWR INTST SCR COLSC - 77818 ([id number]) P1 - NORMAL HEALTHY PATIENT, QK - ELECTRIC SHOVEL OPERATOR 2-4 CNCRNT ANES PROC, QX - DOG OR HORSE RACING OFFICIAL SVC W/ MED DIRECTION
== END 2025-04-12 10:12 | disposition home or self-care (01) ==
LOC: OP CLINIC 10:12
PROVIDERS: PCP Internal Medicine; Visit Provider Internal Medicine Gastroenterology
DX: Z12.11 Encounter for screening for malignant neoplasm of colon (principal); Z86.0101 Personal history of adenomatous and serrated colon polyps
CPT/HCPCS: 00812; 45378; J2405; J2704

== ENCOUNTER 2025-06-28 07:27 | Outpatient (CLI) | payer BC, SELFPAY | END 2025-06-28 07:28 | disposition home or self-care (01) | LOC: NFLDREF 07-01 14:42 | PROVIDERS: PCP Internal Medicine; Referring Provider Internal Medicine; Visit Provider Internal Medicine | DX: E78.5 Hyperlipidemia, unspecified (principal) | CPT/HCPCS: 80061 ==